=== PATIENT | female | born 1995 | race Caucasian/White ===

== ENCOUNTER 2022-02-09 04:25 | Inpatient (IN) | payer BC ==
[2022-02-09] MEDS ORDERED: Sodium Chloride 0.9% 10 ML Syringe FLUSH PRN (06:39)
[2022-02-09] MEDS ORDERED: Lidocaine 1% 50 ML MDV INJECT PRN (06:39)
[2022-02-09] MEDS ORDERED: Carboprost Tromethamine 250 MCG/1 ML Amp IM PRN (06:39)
[2022-02-09] MEDS ORDERED: Water For Irrigation,Sterile 1,000 ML Container IRR PRN (06:39)
[2022-02-09] MEDS ORDERED: Butorphanol 1 MG/ML SDV IVPUSH PRN (06:39)
[2022-02-09] MEDS ORDERED: Misoprostol 200 MCG Tab PO PRN (06:39)
[2022-02-09] MEDS ORDERED: Sodium Chloride 0.9% 20 ML SDV IV PRN (06:39)
[2022-02-09] MEDS ORDERED: Sodium Chloride 0.9% 2.5 ML Syringe FLUSH PRN (06:39)
[2022-02-09] MEDS ORDERED: Methylergonovine 0.2 MG/1 ML Amp IM PRN (06:39)
[2022-02-09] MEDS ORDERED: Tranexamic Acid 1,000 MG in Sodium Chloride 0.9% 100 ML IV PRN (06:39)
[2022-02-09] MEDS ORDERED: Oxytocin/0.9 % Sodium Chloride 30 UNIT/500 ML BAG IV SCH ×2 (06:45→14:30)
[2022-02-09] MEDS: Lactated Ringers 1,000 ML IV SCH ×3 (07:20→17:12)
[2022-02-09] MEDS ORDERED: Ropivacaine/PF 400 MG/200 ML PCA ONE (07:40)
[2022-02-09] MEDS ORDERED: Phenylephrine HCl In 0.9% NaCl 1 MG/10 ML Vial ONE (07:41)
[2022-02-09] MEDS ORDERED: Phenylephrine HCl In 0.9% NaCl 1 MG/10 ML Vial IVPUSH PRN (08:13)
[2022-02-09] MEDS ORDERED: ePHEDrine 50 MG/ML SDV IVPUSH PRN ×2 (08:13)
[2022-02-09] MEDS ORDERED: Ropivacaine HCl/PF 400 MG in Premix Bag 1 BAG EPIDUR SCH (08:15)
[2022-02-09] MEDS ORDERED: Phenylephrine HCl In 0.9% NaCl 1 MG/10 ML Vial IVPUSH SCH (08:15)
[2022-02-09] MEDS ORDERED: Terbutaline 1 MG/ML SDV SUBCUT PRN (14:22)
[2022-02-09] MEDS ORDERED: Misoprostol 25 MCG (1/4 of 100 MCG) Tab VAG PRN ×2 (14:22)
[2022-02-09] MEDS ORDERED: Tranexamic Acid 1,000 MG/10 ML Vial ONE (20:03)
[2022-02-09] MEDS ORDERED: oxyCODONE 5 MG Tab PO PRN (20:33)
[2022-02-09] MEDS ORDERED: Bisacodyl 10 MG Supp RECTAL PRN (20:33)
[2022-02-09] MEDS ORDERED: Acetaminophen 500 MG Tab PO PRN ×2 (20:33)
[2022-02-09] MEDS ORDERED: Witch Hazel Medicated Pads 40/Jar TOP PRN (20:33)
[2022-02-09] MEDS ORDERED: Ibuprofen 400 MG Tab PO PRN (20:33)
[2022-02-09] MEDS ORDERED: Lanolin 100% Cream 7 GM Tube TOP PRN (20:33)
[2022-02-09] MEDS ORDERED: Benzocaine/Menthol 20%-0.5% Spray 78 GM Cannister TOP PRN (20:33)
[2022-02-09] MEDS ORDERED: Measles, Mumps & Rubella Vaccine 0.5 ML SDV SUBCUT ONE (20:50)
[2022-02-09] MEDS: Ibuprofen 800 MG Tab PO PRN (23:27)
[2022-02-10] MEDS: Ibuprofen 800 MG Tab PO PRN (08:37)
[2022-02-10] MEDS: Docusate Sodium 100 MG Cap PO PRN (08:37)
[2022-02-11] MEDS: Docusate Sodium 100 MG Cap PO PRN (07:46)
== END 2022-02-11 19:40 | disposition home or self-care (01) | DRG 560 ==
LOC: MW.OBCHECK 04:25 → MW.OB 04:27 → OBSVTOIN 19:52 → MW.OBCHECK 19:56 → MW.OB 23:05
PROVIDERS: ADMIT Obstetrics & Gynecology; ATTEND Obstetrics & Gynecology
PROC: 10E0XZZ Delivery of Products of Conception, External Approach (ICD-10-PCS; principal; 2022-02-09)
PROC: 10907ZC Drainage of Amniotic Fluid, Therapeutic from Products of Conception, Via Natural or Artificial Opening (ICD-10-PCS; 2022-02-09)
PROC: 3E0R3BZ Introduction of Anesthetic Agent into Spinal Canal, Percutaneous Approach (ICD-10-PCS; 2022-02-09)
PROC: 00HU33Z Insertion of Infusion Device into Spinal Canal, Percutaneous Approach (ICD-10-PCS; 2022-02-09)
PROC: 3E0234Z Introduction of Serum, Toxoid and Vaccine into Muscle, Percutaneous Approach (ICD-10-PCS; 2022-02-11)
DX: O70.0 First degree perineal laceration during delivery (principal); Z3A.38 38 weeks gestation of pregnancy; Z37.0 Single live birth; O72.1 Other immediate postpartum hemorrhage; Z20.822 Contact with and (suspected) exposure to COVID-19; Z23 Encounter for immunization
CPT/HCPCS: 36415; 51702; 84112; 85027; 86592; 86850; 86900; 86901; 90471; 90707; A9270-GY; J2210; J2590; J2795; J3490; J7120; U0002